=== PATIENT | female | born 1985 | race American Indian/Alaskan Native ===

== ENCOUNTER 2018-01-25 11:23 | Day surgery (SDC) | payer OTHER ==
[2018-01-25] MEDS ORDERED: NACL BACTERIOSTATIC INFILTRATI ONE (12:55)
[2018-01-25] MEDS ORDERED: MARCAINE 0.5% 30 ML INFILTRATI ONE (13:03)
[2018-01-25] MEDS ORDERED: DIPRIVAN 10 MG/ML IV ONE (13:03)
[2018-01-25] MEDS ORDERED: DILAUDID ONE (13:04)
[2018-01-25] MEDS ORDERED: DILAUDID IV PRN (13:11)
[2018-01-25] MEDS ORDERED: ZOFRAN IV PRN (13:11)
--- NOTE | 2018-01-25 13:11 | Anesthesia Consultation ---
Anesthesia Consult and Med Hx Date of service: 01/25/18 - Airway Anesthetic Teeth Evaluation: Good ROM Head & Neck: Adequate Mental/Hyoid Distance: Adequate Mallampati Class: Class I Intubation Access Assessment: Good - Pulmonary Exam CTA: Yes - Cardiac Exam Cardiac Exam: No Murmur - Pre-Operative Health Status ASA Pre-Surgery Classification: ASA1 Proposed Anesthetic Plan: General - Pre-Anesthesia Comment Pre-Anesthesia Comments: TOLERATES >6 METS. NO H/O ANESTHETIC EXPOSURE. NO FAMILY DISTORY OF ANESTHETIC INTOLERANCE. NO FAMILY H/O NEUROMUSCULAR DISEASE, DMD, BMD - Endocrine Hx Hypothyroidism: Yes - Hematic Hx Anemia: Yes (WITH ) - Other Systems Hx Alcohol Use: No Hx Substance Use: No Hx Cancer: No
--- NOTE | 2018-01-25 13:11 | Anesthesia Day of Surgery ---
Anesthesia Day of Surgery - Day of Surgery Patient Examined: Yes Patient H&P Reviewed: Yes Patient is NPO: Yes
[2018-01-25 13:26] LABS: Basophils % (Auto) 0.3 % (0.0-1.8); Eosinophils # (Auto) 0.1 K/mm3 (0.0-0.4); Eosinophils % (Auto) 1.8 % (0.0-4.3); Hematocrit 37.3 % (30.3-42.9); Hemoglobin 12.5 gm/dl (10.1-14.3); Lymphocytes # (Auto) 2.5 K/mm3 (1.2-5.4); Lymphocytes % (Auto) 50.4 % (13.4-35.0); Mean Corpuscular HGB Conc 34 % (30-34); Mean Corpuscular Hemoglobin 26 pg (28-32); Mean Corpuscular Volume 78 fl (79-97); Monocytes # (Auto) 0.6 K/mm3 (0.0-0.8); Monocytes % (Auto) 11.7 % (0.0-7.3); Platelet Count 199 K/mm3 (140-440); Red Blood Count 4.76 M/mm3 (3.65-5.03); Red Cell Distribution Width 13.4 % (13.2-15.2)
[2018-01-25] MEDS ORDERED: VERSED IV NR (13:30)
[2018-01-25] MEDS ORDERED: DEMEROL IV PRN (13:30)
[2018-01-25] MEDS ORDERED: NARCAN 0.4 MG/1 ML IV PRN (13:30)
[2018-01-25] MEDS ORDERED: ZOFRAN IV NR (13:30)
[2018-01-25] MEDS ORDERED: ANCEF/STERILE WATER 2 GM/20 ML IV NR (13:35)
[2018-01-25 13:39] LABS: Alanine Aminotransferase 28 units/L (7-56); Albumin 4.1 g/dL (3.9-5); BUN/Creatinine Ratio 30; Blood Urea Nitrogen 12 mg/dL (7-17); Calcium 9.1 mg/dL (8.4-10.2); Hemolysis Index 19
[2018-01-25] MEDS ORDERED: ANCEF/STERILE WATER 2 GM/20 ML 2 GM/20 ML SYRINGE IV ONE (13:47)
[2018-01-25] MEDS ORDERED: ROBINUL ONE (14:00)
[2018-01-25] MEDS ORDERED: NEOSTIGMINE ONE (14:00)
[2018-01-25] MEDS ORDERED: TRANSDERM-SCOP TD NR (14:00)
[2018-01-25] MEDS ORDERED: LACTATED RINGERS 1,000 ML IV SCH (14:00)
[2018-01-25] MEDS ORDERED: MARCAINE 0.5% INFILTRATI ONE (14:18)
--- NOTE | 2018-01-25 15:29 | Discharge Summary ---
Short Stay Discharge Plan Activity: advance as tolerated Weight Bearing Status: Weight Bear as Tolerated Diet: regular Wound: per your surgeon's advice Additional Instructions: REMOVE SCOPOLAMINE PATCH FROM BEHIND LEFT EAR. PUMP AND DISCARD (DUMP) BREAST MILK FOR 24 HOURS AFTER SURGERY. Follow up with: GAVI CALDERON PA [Primary Care Provider] - 7 Days Prescriptions: HYDROcodone/ACETAMINOPHEN [Vicodin HP 10-300 mg TAB] 1 tab PO Q6HR PRN #20 tablet PRN Reason: Pain
[2018-01-25] MEDS: DILAUDID IV PRN ×2 (15:48→16:00)
--- NOTE | 2018-01-25 15:49 | Post Anesthesia Evaluation ---
- Post Anesthesia Evaluation Patient Participated: Yes Airway Patent: Yes Stable Respiratory Function: Yes Nausea/Vomiting: No Temp > 96.8F: Yes Pain Manageable: Yes Adequeate Hydration: Yes Anesthesia Complications: No
[2018-01-25 19:56] VITALS: BP 133/75
--- NOTE | 2018-01-26 00:02 | Operative Report ---
PREOPERATIVE DIAGNOSIS: Umbilical hernia. POSTOPERATIVE DIAGNOSIS: Umbilical hernia. SURGERY: Laparoscopic repair of umbilical hernia with application of Ventralex graft medium size. ANESTHESIA: General. ESTIMATED BLOOD LOSS: Minimal. FINDINGS: The patient had a hernia with the defect about 2 x 2 cm located at the umbilicus. Thus the defect and the hernia is about a 3 x 3 cm. It was easily reducible. I did insert a medium sized Ventralex graft. This was tacked to the fascia from within in usual fashion. DESCRIPTION OF PROCEDURE: With the patient in supine position after cleansing and draping in usual fashion, I made a small incision in the left lower quadrant. With the Veress needle, I was able introduce CO2 pressure of 15 for which #5 trocar was inserted. With the use of the camera, I could see the area in the umbilicus. So, an incision was performed in that area deep subcutaneous tissue. I was able to go within the defect itself through which I was able to introduce a medium sized Ventralex graft. Then, I put #5 again in the right lower quadrant and by this, I had a good positioning at which point a tacker was applied in usual fashion in 2 rows around the graft itself. I had a good hemostasis. I took a picture at the end. I was very much satisfied. Then the 2 ends were transected, just flushed with the fascia at which point I was able to close the fascia with the use of #0 Vicryl [id number] x 2. At that point, the trocars were removed, making sure not bleeding from the insertion sites. Then the skin was closed with intracuticular stitch of 4-0 Vicryl and the same on all the wounds, one left lower, one right lower, and one in the umbilicus area. JOB# [id number] GRACIELA/ИРИНА
== END 2018-01-25 11:24 | disposition home or self-care (01) ==
LOC: OR 11:23
PROVIDERS: ATTEND Surgery
DX: K42.9 Umbilical hernia without obstruction or gangrene (principal); E03.9 Hypothyroidism, unspecified
CPT/HCPCS: 36415; 49652; 80053; 81025; 85025; C1781; J0690; J1170; J2250; J2405; J2704; J2710; J7120